=== PATIENT | male | born 1960 | race Two or more races ===

== ENCOUNTER 2025-05-22 11:12 | Emergency (ER) | payer OTHER ==
[2025-05-22] MEDS ORDERED: ZESTRIL5 MG PO (11:38)
[2025-05-22] MEDS ORDERED: CRESTOR40 MG PO (11:38)
[2025-05-22] MEDS ORDERED: EZETIMIBE PO (11:39)
[2025-05-22] MEDS ORDERED: ADULT LOW DOSE81 M1 PO (11:39)
[2025-05-22] MEDS ORDERED: ROSUVASTATIN PO (11:39)
[2025-05-22] MEDS ORDERED: PREVACID30 MG PO (11:40)
[2025-05-22] MEDS ORDERED: DEXAMETHASONE 4 MG TABLET PO STA (11:56)
[2025-05-22] MEDS ORDERED: ORPHENADRINE CITRATE 30 MG/ML AMPUL IM STA (11:57)
[2025-05-22] MEDS ORDERED: KETOROLAC TROMETHAMINE 30 MG VIAL IM STA (11:57)
[2025-05-22] MEDS ORDERED: ORPHENADRINE CITRATE 30 MG/ML AMPUL ONE (12:56)
[2025-05-22] MEDS ORDERED: DEXAMETHASONE SODIUM PHOSPHATE 4 MG/ML VIAL ONE (12:57)
[2025-05-22] MEDS ORDERED: KETOROLAC TROMETHAMINE 30 MG VIAL ONE (12:57)
[2025-05-22 14:22] LABS: BASO % 0.9 % (0.1-1.2); EOS # 0.14 (0.04-0.54); EOS % 2.5 % (0.7-7.0); LYMPH # 1.46 (1.18-3.74); LYMPH % 26.5 % (19.3-53.1); MEAN PLATELET VOLUME 12.60 fl (9.4-12.4); MONO # 0.51 (0.24-0.82); MONO % 9.3 % (4.7-12.5); NEUT # 3.34 (1.56-6.13); NEUT % 60.6 % (34.0-71.1); RED CELL DISTRIBUTION WIDTH 13.2 % (11.6-14.4)
[2025-05-22 14:56] LABS: ALT/SGPT 70 U/L (12-78); AST/SGOT 38 U/L (15-37); BILIRUBIN TOTAL 0.61 mg/dL (0.3-1.2); BUN CREA RATIO 24 (7.0-25.0); CREATININE SERUM 0.80 mg/dL (0.70-1.30); GFR 97.95; GLOBULINA 3.3 G/DL (2.4-3.5); GLUCOSE FASTING 83 mg/dL (65-100); OSMOLALITY SERUM 281 MOSM/KG (275-295)
[2025-05-22] MEDS ORDERED: NORFLEX100MG PO (15:11)
[2025-05-22] MEDS ORDERED: MEDROLPACK PO (15:11)
[2025-05-22] MEDS ORDERED: NEURONTIN300 MG PO (15:13)
== END 2025-05-22 23:00 | disposition home or self-care (01) ==
LOC: ER 11:13
PROVIDERS: Physician Assistant Medical
DX: M62.838 Other muscle spasm (principal)